=== PATIENT | female | born 1970 | race African-American/Black ===

== ENCOUNTER 2018-02-26 10:08 | Emergency (ER) | payer BC ==
[~2018-02-26] VITALS: Ht 157.5 cm; Wt 87.0 kg
[2018-02-26] MEDS ORDERED: MORPHINE SULFATE 4 MG/ML CPJ (NOT FOR IM USE) IV STA (10:52)
[2018-02-26 13:01] LABS: BASOPHILS % 0.6 % (0.0-2.0); EOSINOPHILS % 0.7 % (0.0-5.0); HEMATOCRIT. 40.9 % (36.0-48.0); HEMOGLOBIN. 13.7 g/dL (12.0-16.0); LYMPHOCYTES % 25.1 % (20.0-50.0); MEAN CORPUSCULAR HEMOGLOBIN 31.9 pg (28.0-32.0); MEAN CORPUSCULAR VOLUME 95.4 fL (81.0-99.0); MONOCYTES % 10.5 % (2.0-8.0); NEUTROPHILS % 63.1 % (40.0-76.0); PLATELET 224 x1000/uL (130-400); RED BLOOD CELL COUNT 4.28 mill/uL (4.2-5.4); RED CELL DISTRIBUTION WIDTH 14.4 % (11.6-14.6)
[2018-02-26 13:09] LABS: CHLORIDE 105 mEq/L (98-107)
[2018-02-26 14:35] VITALS: BP 146/77
[2018-02-26 14:43] LABS: HCG SCREEN NEGATIVE
== END 2018-02-26 14:36 | disposition home or self-care (01) ==
LOC: ER 10:08
DX: R07.89 Other chest pain (principal); R00.1 Bradycardia, unspecified; M19.90 Unspecified osteoarthritis, unspecified site; F41.9 Anxiety disorder, unspecified; F11.10 Opioid abuse, uncomplicated; F17.210 Nicotine dependence, cigarettes, uncomplicated; Z71.6 Tobacco abuse counseling; Z90.49 Acquired absence of other specified parts of digestive tract
CPT/HCPCS: 36415; 71045; 80053; 83880; 84484; 84703; 85025; 93005; 96374; 99285; 99406; J2270

== ENCOUNTER 2018-09-01 00:42 | Emergency (ER) | payer BC ==
[~2018-09-01] VITALS: Ht 154.9 cm; Wt 85.0 kg
[2018-09-01 01:20] VITALS: BP 135/67
== END 2018-09-01 04:05 | disposition left against medical advice (07) ==
LOC: ER 00:42
DX: Z53.21 Procedure and treatment not carried out due to patient leaving prior to being seen by health care provider (principal)
CPT/HCPCS: 81025

== ENCOUNTER 2018-10-03 23:09 | Emergency (ER) | payer BC ==
[~2018-10-03] VITALS: Ht 157.5 cm; Wt 88.9 kg
[2018-10-04] MEDS ORDERED: SODIUM CHLORIDE 0.9% 1,000 ML IV ONE (00:11)
[2018-10-04] MEDS ORDERED: ASPIRIN 81MG TABLET PO ONE (00:15)
[2018-10-04 00:40] LABS: BASOPHILS % 0.6 % (0.0-2.0); EOSINOPHILS % 0.9 % (0.0-5.0); HEMATOCRIT. 40.1 % (36.0-48.0); HEMOGLOBIN. 13.5 g/dL (12.0-16.0); MEAN CORPUSCULAR HEMOGLOBIN 32.1 pg (28.0-32.0); MEAN CORPUSCULAR VOLUME 95.4 fL (81.0-99.0); MEAN PLATELET VOLUME 9.9 fl (7.4-10.4); MONOCYTES % 10.7 % (2.0-8.0); NEUTROPHILS % 53.8 % (40.0-76.0); PLATELET 231 x1000/uL (130-400); RED BLOOD CELL COUNT 4.21 mill/uL (4.2-5.4)
[2018-10-04 00:41] LABS: CHLORIDE 110 mEq/L (98-107)
[2018-10-04 00:43] LABS: PROTHROMBIN TIME 9.9 sec (9.6-11.0)
[2018-10-04 02:28] VITALS: BP 141/79
== END 2018-10-04 02:41 | disposition home or self-care (01) ==
LOC: ER 23:34
DX: R07.89 Other chest pain (principal); R55 Syncope and collapse; I10 Essential (primary) hypertension; F32.9 Major depressive disorder, single episode, unspecified; Z90.49 Acquired absence of other specified parts of digestive tract; Z87.891 Personal history of nicotine dependence
CPT/HCPCS: 36415; 71045; 80053; 81025; 83880; 84484; 85025; 85610; 93005; 96360; 99284; J7030

== ENCOUNTER 2019-07-10 12:59 | Emergency (ER) | payer BC, OTHER ==
[~2019-07-10] VITALS: Ht 154.9 cm; Wt 92.1 kg
[2019-07-10 15:19] VITALS: BP 168/64
== END 2019-07-10 17:35 | disposition left against medical advice (07) ==
LOC: ER 12:59
DX: Z53.21 Procedure and treatment not carried out due to patient leaving prior to being seen by health care provider (principal)